=== PATIENT | male | born 1945 ===

== ENCOUNTER 2019-08-21 15:25 | Inpatient (IN) ==
[2019-08-21] MEDS ORDERED: Aspirin 81 MG TAB.CHEW PO STA (16:14)
[2019-08-21 16:54] LABS: BUN/Creatinine Ratio 23 (6-26); Blood Urea Nitrogen 23 mg/dL (8-23); Calcium 9.2 mg/dL (8.6-10.3); Carbon Dioxide 29 mEq/L (23-29); Chloride 108 mEq/L (98-107); Glucose 95 mg/dL (70-105); Osmolality,Calculated 303 (280-300); Potassium 3.6 mEq/L (3.5-5.1); Sodium 145 mEq/L (136-145); Troponin I 0.03 ng/mL (< 0.04); eGFR For African Americans > 60 (> 60); eGFR For Non-African Americans > 60 (> 60)
[2019-08-21] MEDS ORDERED: Furosemide 40 MG/4 ML VIAL IVP ONE (17:04)
[2019-08-21] MEDS ORDERED: Ondansetron 4 MG/2 ML VIAL IVP PRN (17:25)
[2019-08-21] MEDS ORDERED: Naloxone 0.4 MG/ML INJ IVP PRN (17:25)
[2019-08-21] MEDS: Nicotine 21 MG PATCH.TD24 TD SCH (18:17)
[2019-08-22] MEDS ORDERED: NIFEdipine 10 MG CAPSULE PO ONE (03:45)
[2019-08-22 04:19] LABS: Hematocrit 38.5 % (37.5-50.1); Hemoglobin 12.3 g/dL (12.9-16.9); Immature Platelets 30.3 % (1.1-6.1); Mean Corpuscular HGB Conc 31.9 g/dL (31.6-35.5); Mean Corpuscular Hemoglobin 27.5 pg (28.0-33.3); Mean Corpuscular Volume 85.9 fL (83.0-100.0); Red Blood Count 4.48 M/mcL (4.19-5.50); Red Cell Distribution Width 13.9 % (11.5-14.5); White Blood Count 6.9 K/mcL (4.3-11.1)
[2019-08-22 04:23] LABS: Platelet Count 79 K/mcL (140-400)
[2019-08-22 04:36] LABS: BUN/Creatinine Ratio 20 (6-26); Blood Urea Nitrogen 20 mg/dL (8-23); Carbon Dioxide 28 mEq/L (23-29); Chloride 108 mEq/L (98-107); Glucose 108 mg/dL (70-105); Magnesium 1.7 mg/dL (1.6-2.6); Osmolality,Calculated 305 (280-300); Sodium 146 mEq/L (136-145); eGFR For African Americans > 60 (> 60); eGFR For Non-African Americans > 60 (> 60)
[2019-08-22] MEDS ORDERED: Acetaminophen 325 MG TABLET PO ONE (05:17)
[2019-08-22] MEDS: Aspirin Enteric Coated 81 MG Tablet PO SCH (08:06)
[2019-08-22] MEDS: Lisinopril 20 MG TABLET PO SCH (08:06)
[2019-08-22] MEDS: cloNIDine HCl 0.1 MG TABLET PO SCH ×3 (08:07→21:04)
[2019-08-22] MEDS: Potassium Chloride Elixir 20 MEQ/15 ML UDC PO SCH ×2 (08:09→12:48)
[2019-08-22] MEDS: Nicotine 21 MG PATCH.TD24 TD SCH (08:10)
[2019-08-22] MEDS ORDERED: Nicotine 21 MG PATCH.TD24 TD SCH (09:00)
[2019-08-22] MEDS ORDERED: Furosemide 40 MG/4 ML VIAL IVP SCH (09:00)
[2019-08-23 04:42] LABS: Hematocrit 38.4 % (37.5-50.1); Hemoglobin 12.2 g/dL (12.9-16.9); Immature Platelets 32.3 % (1.1-6.1); Mean Corpuscular HGB Conc 31.8 g/dL (31.6-35.5); Mean Corpuscular Volume 88.3 fL (83.0-100.0); Red Blood Count 4.35 M/mcL (4.19-5.50); Red Cell Distribution Width 13.7 % (11.5-14.5); White Blood Count 5.7 K/mcL (4.3-11.1)
[2019-08-23 04:47] LABS: Platelet Count 91 K/mcL (140-400)
[2019-08-23 04:58] LABS: BUN/Creatinine Ratio 26 (6-26); Blood Urea Nitrogen 35 mg/dL (8-23); Calcium 9.3 mg/dL (8.6-10.3); Carbon Dioxide 27 mEq/L (23-29); Chloride 109 mEq/L (98-107); Glucose 100 mg/dL (70-105); Magnesium 1.7 mg/dL (1.6-2.6); Osmolality,Calculated 302 (280-300); Potassium 3.7 mEq/L (3.5-5.1); Sodium 142 mEq/L (136-145); eGFR For African Americans > 60 (> 60); eGFR For Non-African Americans 51 (> 60)
[2019-08-23] MEDS: Aspirin Enteric Coated 81 MG Tablet PO SCH (08:53)
[2019-08-23] MEDS: cloNIDine HCl 0.1 MG TABLET PO SCH ×3 (08:53→20:31)
[2019-08-23] MEDS: Lisinopril 20 MG TABLET PO SCH (08:54)
[2019-08-23] MEDS: Nicotine 21 MG PATCH.TD24 TD SCH (09:40)
[2019-08-24 01:47] LABS: Hematocrit 38.3 % (37.5-50.1); Hemoglobin 12.3 g/dL (12.9-16.9); Mean Corpuscular HGB Conc 32.1 g/dL (31.6-35.5); Mean Corpuscular Hemoglobin 27.8 pg (28.0-33.3); Mean Corpuscular Volume 86.7 fL (83.0-100.0); Red Blood Count 4.42 M/mcL (4.19-5.50); Red Cell Distribution Width 13.7 % (11.5-14.5); White Blood Count 5.7 K/mcL (4.3-11.1)
[2019-08-24 01:48] LABS: Platelet Count 78 K/mcL (140-400)
[2019-08-24 02:03] LABS: BUN/Creatinine Ratio 32 (6-26); Blood Urea Nitrogen 42 mg/dL (8-23); Carbon Dioxide 27 mEq/L (23-29); Chloride 110 mEq/L (98-107); Glucose 104 mg/dL (70-105); Magnesium 1.7 mg/dL (1.6-2.6); Osmolality,Calculated 307 (280-300); Potassium 3.7 mEq/L (3.5-5.1); Sodium 143 mEq/L (136-145); eGFR For African Americans > 60 (> 60); eGFR For Non-African Americans 53 (> 60)
[2019-08-24] MEDS ORDERED: Regadenoson 0.4 MG/5 ML SYRINGE IVP ONE (06:10)
[2019-08-24] MEDS ORDERED: cloNIDine HCl 0.1 MG TABLET PO SCH (09:00)
[2019-08-24] MEDS: Aspirin Enteric Coated 81 MG Tablet PO SCH (09:36)
[2019-08-24] MEDS: hydrALAZINE 10 MG TABLET PO SCH ×2 (13:04→17:39)
[2019-08-24] MEDS: Lisinopril 20 MG TABLET PO SCH (15:07)
[2019-08-24] MEDS: amLODIPine 5 MG TABLET PO SCH (15:08)
[2019-08-25] MEDS: hydrALAZINE 10 MG TABLET PO SCH ×4 (00:30→17:09)
[2019-08-25 04:49] LABS: Hematocrit 37.7 % (37.5-50.1); Hemoglobin 12.1 g/dL (12.9-16.9); Immature Platelets 30.7 % (1.1-6.1); Mean Corpuscular HGB Conc 32.1 g/dL (31.6-35.5); Mean Corpuscular Hemoglobin 27.9 pg (28.0-33.3); Mean Corpuscular Volume 87.1 fL (83.0-100.0); Red Blood Count 4.33 M/mcL (4.19-5.50); Red Cell Distribution Width 13.5 % (11.5-14.5); White Blood Count 5.6 K/mcL (4.3-11.1)
[2019-08-25 05:00] LABS: INR 1.2; Prothrombin Time 13.9 Seconds (9.4-12.1)
[2019-08-25 05:01] LABS: Platelet Count 85 K/mcL (140-400)
[2019-08-25 05:08] LABS: BUN/Creatinine Ratio 31 (6-26); Blood Urea Nitrogen 30 mg/dL (8-23); Calcium 9.1 mg/dL (8.6-10.3); Carbon Dioxide 26 mEq/L (23-29); Chloride 111 mEq/L (98-107); Glucose 88 mg/dL (70-105); Magnesium 1.9 mg/dL (1.6-2.6); Osmolality,Calculated 300 (280-300); Potassium 3.6 mEq/L (3.5-5.1); Sodium 142 mEq/L (136-145); eGFR For African Americans > 60 (> 60); eGFR For Non-African Americans > 60 (> 60)
[2019-08-25] MEDS: Aspirin Enteric Coated 81 MG Tablet PO SCH (08:47)
[2019-08-25] MEDS: Lisinopril 20 MG TABLET PO SCH (08:47)
[2019-08-25] MEDS: amLODIPine 5 MG TABLET PO SCH (08:47)
[2019-08-25] MEDS ORDERED: 0.9 % Sodium Chloride 1,000 ML ONE ×2 (12:00→12:03)
[2019-08-25] MEDS ORDERED: ISOVUE-370 200 ML INFUS..BTL ONE (12:01)
[2019-08-25] MEDS ORDERED: Nitroglycerin 1,000 MCG/10 ML VIAL IV ONE (12:01)
[2019-08-25] MEDS ORDERED: *HR* Heparin 10,000 UNIT/10 ML VIAL ONE (12:01)
[2019-08-25] MEDS ORDERED: Heparin 1,000 UNITS/500 mL 500 ML ONE (12:01)
[2019-08-25] MEDS ORDERED: *HR* Midazolam HCl 2 MG/2 ML VIAL ONE (12:26)
[2019-08-25] MEDS ORDERED: *HR* FentaNYL (PF) 100 MCG/2 ML VIAL ONE (12:26)
[2019-08-26] MEDS: hydrALAZINE 10 MG TABLET PO SCH ×2 (01:14→05:56)
[2019-08-26 07:10] VITALS: BP 176/92
[2019-08-26 08:05] LABS: Hematocrit 38.7 % (37.5-50.1); Hemoglobin 12.4 g/dL (12.9-16.9); Mean Corpuscular Hemoglobin 28.4 pg (28.0-33.3); Mean Corpuscular Volume 88.6 fL (83.0-100.0); Red Blood Count 4.37 M/mcL (4.19-5.50); Red Cell Distribution Width 13.2 % (11.5-14.5); White Blood Count 5.5 K/mcL (4.3-11.1)
[2019-08-26 08:06] LABS: Platelet Count 75 K/mcL (140-400)
[2019-08-26] MEDS: amLODIPine 5 MG TABLET PO SCH (08:06)
[2019-08-26] MEDS: Lisinopril 20 MG TABLET PO SCH (08:06)
[2019-08-26] MEDS: Aspirin Enteric Coated 81 MG Tablet PO SCH (08:06)
[2019-08-26 08:25] LABS: BUN/Creatinine Ratio 24 (6-26); Blood Urea Nitrogen 24 mg/dL (8-23); Calcium 9.2 mg/dL (8.6-10.3); Carbon Dioxide 25 mEq/L (23-29); Chloride 112 mEq/L (98-107); Glucose 106 mg/dL (70-105); Osmolality,Calculated 298 (280-300); Potassium 3.5 mEq/L (3.5-5.1); Sodium 142 mEq/L (136-145); eGFR For African Americans > 60 (> 60); eGFR For Non-African Americans > 60 (> 60)
[2019-08-26] MEDS ORDERED: Furosemide 20 MG TABLET PO SCH (09:00)
[2019-08-26] MEDS ORDERED: Isosorbide MONOnitrate (24 HR) 30 MG TAB.ER.24H PO SCH (09:00)
[2019-08-26] MEDS ORDERED: hydrALAZINE 25 MG TABLET PO SCH (09:00)
== END 2019-08-26 13:07 | disposition home or self-care (01) | DRG 286 ==
LOC: 2NENU 15:25 → EMEROOARM 15:25 → SUATTDRO 18:38 → 2NENU 19:29 → SUATTDRO 08-24 15:27
PROVIDERS: ADMIT Internal Medicine; ATTEND Internal Medicine